=== PATIENT | male | born 1970 | race Caucasian/White ===

== ENCOUNTER → 2017-02-25 | Outpatient (CLI) | payer OTHER ==
[~2017-02-25] MED LIST: 'XANAX1 MG PO; ALBUTEROL0.09 MG/A2 INH; ALPRAZOLAM0.5 MG PO; AMANTADINE HCL PO; AMOXIL500 MG PO; ATARAX25 MG PO; ATIVAN1 MG PO; AVPAK AZITHROM250 M1 PO; B COMPLEX & B121 TAB PO; BUSPIRONE HCL5 MG PO; CLEOCIN150 MG PO; CLINDAMYCIN HC300 MG PO; CLONIDINE0.1 MG PO; FLONASE 0.05% 121 EA NAS; HALDOL1 MG PO; HYDROCODONE BIT1 T11 PO; LITHIUM CARBON300 MG PO; LOMOTIL 0.025 M1 TA1 PO; MOTRIN800 MG PO; MULTI VITAMINS1 TAB PO; NEURONTIN300 MG PO; NEURONTIN600 MG PO; NEURONTIN800 MG PO; PHENERGAN W/DM120 ML PO; PREDNICOT10 MG PO; PREDNICOT20 MG PO; ROBITUSSIN AC 110 ML PO; SIMVASTATIN20 MG PO; TESSALON PERLE200 MG PO; VISTARIL25 M1 PO; XANAX XR1 MG PO; XANAX0.5 MG PO; XANAX1 MG PO; ZITHROMAX Z PA250 MG PO; ZOFRAN ODT4 MG SL; ZYRTEC10 MG PO; Zofran4 MG PO
[2017-02-28 17:07] LABS: FECAL WBC Final report (None Seen)
== END | disposition home or self-care (01) ==
LOC: LAB 14:35 → RAD 14:35
PROVIDERS: Nurse Practitioner Family
DX: R10.9 Unspecified abdominal pain (principal); R19.7 Diarrhea, unspecified; Z98.1 Arthrodesis status

== ENCOUNTER → 2017-06-24 | Outpatient (CLI) | payer BC | END | disposition home or self-care (01) | LOC: US 09:08 | DX: K76.0 Fatty (change of) liver, not elsewhere classified (principal); R16.1 Splenomegaly, not elsewhere classified ==

== ENCOUNTER → 2017-08-15 | Outpatient (CLI) | payer BC ==
[2017-08-15 11:16] LABS: BILIRUBIN NEGATIVE (NEGATIVE); BLOOD NEGATIVE (NEGATIVE); CLARITY CLEAR (CLEAR); COLOR YELLOW (YELLOW); GLUCOSE NEGATIVE (NEGATIVE); KETONE NEGATIVE (NEGATIVE); LEUKO ESTERASE NEGATIVE (NEGATIVE); NITRITE POSITIVE (NEGATIVE); UROBILINOGEN 0.2 E.U./dl (0.2-1.0)
[2017-08-15 11:24] LABS: BASO # 0.1 10*3/uL (0.0-0.1); BASO % 0.9 % (0.0-1.0); EOS # 0.2 10*3/uL (0.0-0.4); EOS % 2.6 % (1.0-4.0); HEMOGLOBIN 17.3 g/dl (14.0-18.0); LYMPH # 2.2 10*3/uL (1.3-4.4); MEAN CELL VOLUME 87.1 fl (80.0-94.0); MEAN CORPUSCULAR HGB 30.1 pg (27.0-31.0); MEAN CORPUSCULAR HGB CONC 34.6 g/dl (33.0-37.0); MEAN PLATELET VOLUME 9.7 fl (9.6-12.3); MONO # 0.6 10*3/uL (0.1-1.0); NEUT # 4.7 10*3/uL (2.3-7.9); NEUT % 60.2 % (47.0-73.0); PLATELET COUNT AUTOMATED 248 10*3/uL (130-400); RED BLOOD COUNT 5.74 10*6/uL (4.50-5.90); RED CELL DISTRI WIDTH 13.1 % (0-14.5); WHITE BLOOD COUNT 7.8 10*3/uL (4.8-10.8)
[2017-08-15 11:46] LABS: ALBUMIN 4.1 gm/dl (3.1-4.5); BUN 12 mg/dl (7-24); CHLORIDE 106 mmol/L (98-107); CREATININE 1.13 mg/dL (0.70-1.30); POTASSIUM 3.9 mmol/L (3.5-5.1); SGOT/AST 19 IU/L (3-35); SGPT/ALT 41 U/L (12-78); SODIUM 140 mmol/L (136-145); TOTAL PROTEIN 7.4 gm/dL (6.4-8.2)
[2017-08-15 11:48] LABS: BACTERIA TRACE; EPITHELIAL CELLS 0-2; WBC 0-2 wbc/hpf (0-5)
[2017-08-15 11:51] LABS: ALKALINE PHOSPHATASE 93 U/L (45-117)
== END | disposition home or self-care (01) ==
LOC: LAB 10:49
PROVIDERS: Urology
DX: Z12.5 Encounter for screening for malignant neoplasm of prostate (principal); D40.0 Neoplasm of uncertain behavior of prostate; E78.5 Hyperlipidemia, unspecified; N39.0 Urinary tract infection, site not specified

== ENCOUNTER → 2017-11-12 | Outpatient (CLI) | payer OTHER | END | disposition home or self-care (01) | LOC: RAD 10:45 | DX: M25.561 Pain in right knee (principal) ==

== ENCOUNTER → 2019-02-07 | Outpatient (CLI) | payer OTHER ==
[~2019-02-07] MED LIST changes: +AMPHETAMINE/DEX30 MG PO; +BREO ELLIPTA 11 EACH INH; +DIAZEPAM5 MG PO; +GABAPENTIN TAB600 MG PO; +HYDROCODONE-AC1 EAC2 PO; +METFORMIN HYDR500 MG PO; +NAPROSYN500 MG PO; +OMEPRAZOLE40 MG PO; +PRAMIPEXOLE DI0.5 MG PO; +PROBIOTIC1 EAC4 PO; +SIMVASTATIN10 MG PO; +VICTOZA 3-PAK6 MG/ML SC; +VITAMIN B-125000 MC1 PO; +VITAMIN C500 M4 PO; +ZESTRIL10 MG PO
--- NOTE | ~2019-02-07 | EKG ---
[place], [place] ELECTROCARDIOGRAM REPORT NAME: ARCHIE CADET UNIT #: [id number] ROOM: DOCTOR: EPIPHANY DRAFT REPORT BIRTHDATE: [birth year] [facility] Test Date: 2019-02-07 Test Time: 10:51:49 Pat Name: ARCHIE CADET Department: Room: Gender: Shop Steward: Rianna Junior : 1970 Requested By: JOSE MANUEL BARRON Order Number: [id number] Reading MD: Aldair Hawley MD Measurements Intervals [place] Rate: 75 P: 26 NH: 147 QRS: 89 QRSD: 110 T: 32 QT: 394 QTc: 441 Interpretive Statements Sinus rhythm RSR' in V1 or V2, right VCD or RVH Electronically Signed On 02-08-2019 8:13:09 PDT by Aldair Hawley MD CM:EKGRPT:ELECTROCARDIOGRAM REPORT [id number] JOSE MANUEL BARRON EPIPHANY DRAFT REPORT JOSE MANUEL BARRON
== END | disposition home or self-care (01) ==
LOC: CARD 10:37
DX: E11.9 Type 2 diabetes mellitus without complications (principal); I10 Essential (primary) hypertension; E78.5 Hyperlipidemia, unspecified; M54.5 Low back pain; M25.561 Pain in right knee; M25.562 Pain in left knee; Z79.4 Long term (current) use of insulin

== ENCOUNTER → 2019-03-14 | Outpatient (CLI) | payer OTHER ==
[2019-03-14 10:49] LABS: ALBUMIN 4.4 gm/dl (3.1-4.5); ALKALINE PHOSPHATASE 63 U/L (45-117); BUN 18 mg/dl (7-24); CHOLESTEROL 148 mg/dL (<200); CREATININE 1.26 mg/dL (0.70-1.30); HDL CHOLESTEROL 44 mg/dl (40-60); LDL CHOLESTEROL 67 mg/dL (9-159); LIPASE 164 U/L (73-393); SGOT/AST 53 IU/L (3-35); SGPT/ALT 93 U/L (12-78); TOTAL PROTEIN 7.2 gm/dL (6.4-8.2); TRIGLYCERIDES 185 mg/dl (<150); VLDL CHOLESTEROL 37 mg/dL (6-40)
[2019-03-14 11:15] LABS: CHLORIDE 106 mmol/L (98-107); POTASSIUM 4.2 mmol/L (3.5-5.1); SODIUM 139 mmol/L (136-145)
[2019-03-14 11:37] LABS: PTH INTACT 56.5 pg/mL (18.5-88.0); VITAMIN D, 25-HYDROXY 23.2 ng/mL (30-100)
[2019-03-15 09:08] LABS: LDL CHOLESTEROL (DIRECT) 83 mg/dL (0-99)
== END | disposition home or self-care (01) ==
LOC: LAB 09:54
PROVIDERS: Internal Medicine Endocrinology, Diabetes & Metabolism
DX: E11.9 Type 2 diabetes mellitus without complications (principal); E78.5 Hyperlipidemia, unspecified; E55.9 Vitamin D deficiency, unspecified; E53.8 Deficiency of other specified B group vitamins

== ENCOUNTER → 2019-07-17 | Outpatient (CLI) | payer OTHER ==
[~2019-07-17] MED LIST changes: +DICLOFENAC SOD75 MG PO; +FENOFIBRATE MI134 MG PO; +FLUOXETINE HCL40 MG PO; +GLIMEPIRIDE4 M1 PO; +OLANZAPINE15 M2 PO; +OMEGA-31000 M1 PO; +OZEMPIC1 MG/0.75 SQ; +STEGLATRO15 MG PO; +TRAZODONE100 MG PO; +TRESIBA100 UNIT/1 SQ
--- NOTE | ~2019-07-17 | ST ---
[place], [place] EXERCISE STRESS TEST REPORT NAME: ARCHIE CADET [facility] #: [id number] UNIT #: [id number] ROOM: DOCTOR: CATY BURCIAGA MD BIRTHDATE: [birth year] DOS: 07/17/2019 DOBUTAMINE PORTION OF THE DOBUTAMINE STRESS ECHOCARDIOGRAM The patient with psychiatric issues with a syncopal episode, referred for a dobutamine stress echocardiogram. Baseline EKG shows baseline sinus rhythm with incomplete right bundle-branch pattern. The patient was given dobutamine up to 40 mcg and 0.5 of atropine. The patient has episodes of 2:1 AV block intermittently. Baseline echo showed an excellent ejection fraction with dobutamine and the atropine. Heart rate went up to 129, which actually doubled the heart rate. He started with 55 with sinus bradycardia. The patient had no chest discomfort. There is significant improvement of ejection fraction with thickening of all the segments of the left ventricle. No wall motion abnormalities. No more episodes of heart block. FINAL IMPRESSION: Abnormal EKG response with episodes of 2:1 AV block. Normal echo response with improvement of ejection fraction, no wall motion abnormalities. The patient is a diabetic, dyslipidemic with a syncopal episode with 2:1 AV block, probably needs an EP study and the consideration for a pacemaker because of the significant risk factors, may need a heart catheterization prior to that. CATY BURCIAGA MD CM:STRESS:EXERCISE STRESS TEST REPORT [id number] CATY BURCIAGA MD
--- NOTE | 2019-07-17 07:55 | NUR ---
INFORMED CONSENT OBTAINED FOR DOBUTAMINE STRESS ECHO WITH DR. BURCIAGA. RESTING EKG SINUS DOMINGO WITH A RESTING HR OF 57 AND BP OF 118/74. PT COMPLETED 10:36 OF A 3:00 DOBUTAMINE PROTOCOL WITH PEAK INFUSION OF 40 MCG/KG/MIN FOR 1:36 OF STAGE IV. IN STAGES I AND II HAD FREQUENT EPISODES OF 2:1 AV BLOCK. PT ASYMPTOMATIC. IN STAGE II STARTED PERFORMING ISOMETRIC HAND EXERCISE AND CYCLING OF LEGS IN CART. HR INCREASED 2:1 AV BLOCK SUBSIDED. END OF STAGE III HR 90 AND ATROPINE 0.5 MG IV ADMINISTERED ORDERED TO INCREASE HR. HAD A PEAK HR OF 129 WHICH IS 75% OF PREDICTED MAX WITH A PEAK BP OF 216/50. HAD NO ST CHANGES OR ANY CHEST DISCOMFORT. NEGATIVE STRESS ECHO PORTION. SEE ECHO REPORT FOR FULL DETAILS. TOLERATED ALL MEDICATIONS ADMINISTERED WELL. DR. BURCIAGA EXPLAINED TO PT ECHO PORTION IS NEGATIVE BUT ABNORMAL WITH 2:1 AV BLOCK AND SCHEDULING PATIENT FOR CARDIAC CATHETERIZATION. OFFICE CALLED AND WILL BE SCHEDULING CATH AND NOTIFYING PATIENT. LAST RECOVERY HR OF 93 WITH BP OF 90/60. IV DISCONTINUED AND DISCHARGED IN STABLE CONDITION.
== END | disposition home or self-care (01) ==
LOC: CARD 00:56
DX: I20.9 Angina pectoris, unspecified (principal); R94.31 Abnormal electrocardiogram [ECG] [EKG]; Z82.49 Family history of ischemic heart disease and other diseases of the circulatory system

== ENCOUNTER 2019-08-28 11:24 | Emergency (ER) | payer OTHER ==
[~2019-08-28] VITALS: Ht 190.5 cm; Wt 122.9 kg
== END 2019-08-28 14:12 | disposition short-term general hospital (02) ==
LOC: ED 11:24
DX: R32 Unspecified urinary incontinence (principal); R15.9 Full incontinence of feces; M54.9 Dorsalgia, unspecified; E11.9 Type 2 diabetes mellitus without complications; E78.5 Hyperlipidemia, unspecified; E66.9 Obesity, unspecified; J44.9 Chronic obstructive pulmonary disease, unspecified; I10 Essential (primary) hypertension; E78.00 Pure hypercholesterolemia, unspecified; Z68.39 Body mass index [BMI] 39.0-39.9, adult; Z79.899 Other long term (current) drug therapy; Z88.0 Allergy status to penicillin; Z88.6 Allergy status to analgesic agent

== ENCOUNTER → 2020-04-14 | Outpatient (CLI) | payer OTHER | END | disposition home or self-care (01) | LOC: US 11:01 | DX: J44.9 Chronic obstructive pulmonary disease, unspecified (principal); I65.23 Occlusion and stenosis of bilateral carotid arteries; J84.10 Pulmonary fibrosis, unspecified; G62.9 Polyneuropathy, unspecified; E66.2 Morbid (severe) obesity with alveolar hypoventilation; E16.2 Hypoglycemia, unspecified ==

== ENCOUNTER → 2020-06-02 | Outpatient (CLI) | payer OTHER ==
[~2020-06-02] MED LIST changes: +ABILIFY2 MG PO; +ADDERALL 30 MG30 MG PO; +JARDIANCE25 MG PO; +MIRAPEX1 MG PO; +PROZAC40 M1 PO; +VIT B12 PO; +VIT C PO; +VIT D3 PO
--- NOTE | 2020-06-02 11:52 | NUR ---
INFORMED SIGNED CONSENT OBTAINED FOR LEXISCAN STRESS TEST WITH DR ZIEGLER. RESTING EKG NSR HR 66. PULSE OX 97% LUNGS CLEAR. PT COMPLETED ONE MINUTE OF A LEXISCAN STRESS TEST WITH PT RECEIVING LEXISCAN 0.4MG IV OVER 10 SECONDS. NO ARRHYTHMIAS OR ST CHANGES NOTED. PT C/O SOB WITH INJECTION. LAST RECOVERY HR OF 80 BP 110/70. PT IN STABLE CONDITION, AWAITING NUCLEAR IMAGES.
== END | disposition home or self-care (01) ==
LOC: CARD 00:26
PROVIDERS: ATTEND Internal Medicine Cardiovascular Disease
DX: R94.31 Abnormal electrocardiogram [ECG] [EKG] (principal); R06.02 Shortness of breath; R07.9 Chest pain, unspecified

== ENCOUNTER → 2020-08-20 | Outpatient (CLI) | payer OTHER | END | disposition home or self-care (01) | LOC: COVID19 16:29 | PROVIDERS: ATTEND Nurse Practitioner Family | DX: Z20.828 Contact with and (suspected) exposure to other viral communicable diseases (principal); E11.9 Type 2 diabetes mellitus without complications ==

== ENCOUNTER → 2020-10-16 | Outpatient (CLI) | payer OTHER | END | disposition home or self-care (01) | LOC: COVID19 13:37 | PROVIDERS: ATTEND Nurse Practitioner Family | DX: Z20.822 Contact with and (suspected) exposure to COVID-19 (principal); E11.9 Type 2 diabetes mellitus without complications; R42 Dizziness and giddiness; J01.90 Acute sinusitis, unspecified; R05 Cough; H55.00 Unspecified nystagmus; S09.90XA Unspecified injury of head, initial encounter; X58.XXXA Exposure to other specified factors, initial encounter; Y93.89 Activity, other specified; Y92.89 Other specified places as the place of occurrence of the external cause; Y99.8 Other external cause status; Z72.0 Tobacco use ==

== ENCOUNTER 2020-11-16 19:09 | Inpatient (IN) | payer OTHER ==
[~2020-11-16] VITALS: Ht 193 cm; Wt 113.4 kg
[2020-11-16 19:44] LABS: BASO # 0.1 10*3/uL (0.0-0.1); BASO % 0.7 % (0.0-1.0); EOS # 0.2 10*3/uL (0.0-0.4); EOS % 1.7 % (1.0-4.0); HEMATOCRIT 52.9 % (42.0-52.0); MEAN CELL VOLUME 89.7 fl (80.0-94.0); MEAN CORPUSCULAR HGB CONC 33.5 g/dl (33.0-37.0); MEAN PLATELET VOLUME 9.9 fl (9.6-12.3); MONO # 0.9 10*3/uL (0.1-1.0); MONO % 9.2 % (3.0-9.0); NEUT % 58.9 % (47.0-73.0); PLATELET COUNT AUTOMATED 213 10*3/uL (130-400); RED CELL DISTRI WIDTH 12.5 % (0-14.5); WHITE BLOOD COUNT 10.2 10*3/uL (4.8-10.8)
[2020-11-16 19:58] LABS: INTERNATIONAL NORM RATIO 0.9 (2.0-3.5)
[2020-11-16 20:01] LABS: ALBUMIN 3.9 gm/dl (3.1-4.5); ALKALINE PHOSPHATASE 99 U/L (45-117); BUN 12 mg/dl (7-24); CHLORIDE 107 mmol/L (98-107); CREATININE 1.33 mg/dL (0.70-1.30); POTASSIUM 3.6 mmol/L (3.5-5.1); SGOT/AST 23 IU/L (3-35); SGPT/ALT 59 U/L (12-78); SODIUM 141 mmol/L (136-145); TOTAL PROTEIN 7.2 gm/dL (6.4-8.2)
[2020-11-16 20:05] LABS: TROPONIN I < 0.015 ng/ml (<0.045)
[2020-11-16 22:42] VITALS: BP 99/68
[2020-11-17] MEDS ORDERED: OZEMPIC1 MG/0.75 SQ (01:43)
[2020-11-17 02:50] VITALS: BP 99/56
[2020-11-17 05:04] VITALS: BP 116/68
[2020-11-17 06:10] LABS: BASO # 0.1 10*3/uL (0.0-0.1); BASO % 0.7 % (0.0-1.0); EOS # 0.2 10*3/uL (0.0-0.4); HEMATOCRIT 53.5 % (42.0-52.0); LYMPH # 2.9 10*3/uL (1.3-4.4); LYMPH % 29.3 % (27.0-41.0); MEAN CELL VOLUME 91.8 fl (80.0-94.0); MEAN CORPUSCULAR HGB 30.2 pg (27.0-31.0); MEAN CORPUSCULAR HGB CONC 32.9 g/dl (33.0-37.0); MEAN PLATELET VOLUME 10.4 fl (9.6-12.3); MONO % 10.1 % (3.0-9.0); NEUT # 5.7 10*3/uL (2.3-7.9); NEUT % 57.6 % (47.0-73.0); PLATELET COUNT AUTOMATED 211 10*3/uL (130-400); RED BLOOD COUNT 5.83 10*6/uL (4.50-5.90); RED CELL DISTRI WIDTH 12.8 % (0-14.5); WHITE BLOOD COUNT 9.8 10*3/uL (4.8-10.8)
[2020-11-17 06:19] LABS: BUN 12 mg/dl (7-24); CHLORIDE 108 mmol/L (98-107); CHOLESTEROL 143 mg/dL (<200); CREATININE 1.16 mg/dL (0.70-1.30); FREE T4 0.88 ng/dl (0.76-1.46); HDL CHOLESTEROL 47 mg/dl (40-60); LDL CHOLESTEROL 52 mg/dL (9-159); POTASSIUM 3.4 mmol/L (3.5-5.1); SODIUM 140 mmol/L (136-145); TRIGLYCERIDES 219 mg/dl (<150); VLDL CHOLESTEROL 44 mg/dL (6-40)
[2020-11-17 08:00] VITALS: BP 118/89
[2020-11-17 08:58] LABS: VITAMIN D, 25-HYDROXY 29.1 ng/mL (30-100)
[2020-11-17 09:04] LABS: BILIRUBIN Negative (Negative); BLOOD Negative (Negative); CLARITY Cloudy (Clear); COLOR Yellow (Yellow); GLUCOSE 3+ (Negative); KETONE Negative (Negative); LEUKO ESTERASE Negative (Negative); NITRITE Negative (Negative); PH 6.5 (4.5-8.0); SPECIFIC GRAVITY >= 1.030 (1.001-1.030)
[2020-11-17 10:03] LABS: BACTERIA 2+; CALCIUM OXALATE CRYSTALS 1+
== END 2020-11-17 12:41 | disposition home or self-care (01) | DRG 342 ==
LOC: ED 19:09 → EDHOLD 22:17
PROVIDERS: Emergency Medicine; Internal Medicine; ADMIT Internal Medicine; ATTEND Internal Medicine
PROC: 2W3TX1Z Immobilization of Left Foot using Splint (ICD-10-PCS; principal; 2020-11-16)
DX: S82.899A Other fracture of unspecified lower leg, initial encounter for closed fracture (principal); R15.9 Full incontinence of feces; M54.9 Dorsalgia, unspecified; R32 Unspecified urinary incontinence; W19.XXXA Unspecified fall, initial encounter; E11.65 Type 2 diabetes mellitus with hyperglycemia; E78.5 Hyperlipidemia, unspecified; X58.XXXA Exposure to other specified factors, initial encounter; G89.29 Other chronic pain; E87.6 Hypokalemia; E83.41 Hypermagnesemia; F41.9 Anxiety disorder, unspecified; K02.9 Dental caries, unspecified; Z88.8 Allergy status to other drugs, medicaments and biological substances; Z98.1 Arthrodesis status; Z89.021 Acquired absence of right finger(s); Y93.89 Activity, other specified; Z88.6 Allergy status to analgesic agent; Z88.0 Allergy status to penicillin; Z79.1 Long term (current) use of non-steroidal anti-inflammatories (NSAID); Y92.89 Other specified places as the place of occurrence of the external cause; Y99.8 Other external cause status; Z79.899 Other long term (current) drug therapy

== ENCOUNTER 2020-11-24 15:55 | Emergency (ER) | payer OTHER ==
[~2020-11-24] VITALS: Ht 193 cm; Wt 113.4 kg
== END 2020-11-24 17:02 | disposition home or self-care (01) ==
LOC: ED 15:55
DX: Z46.89 Encounter for fitting and adjustment of other specified devices (principal); Z88.0 Allergy status to penicillin; Z88.8 Allergy status to other drugs, medicaments and biological substances; Z79.899 Other long term (current) drug therapy; Z79.84 Long term (current) use of oral hypoglycemic drugs; Z98.890 Other specified postprocedural states

== ENCOUNTER → 2020-12-03 | Outpatient (CLI) | payer OTHER | END | disposition home or self-care (01) | LOC: MRI 12:39 | PROVIDERS: ATTEND Nurse Practitioner Family | DX: Z01.02 Encounter for examination of eyes and vision following failed vision screening (principal); R55 Syncope and collapse; S82.892D Other fracture of left lower leg, subsequent encounter for closed fracture with routine healing ==

== ENCOUNTER → 2020-12-04 | Outpatient (CLI) | payer OTHER | END | disposition home or self-care (01) | LOC: CARD 00:36 | PROVIDERS: ATTEND Nurse Practitioner Family | DX: Z01.02 Encounter for examination of eyes and vision following failed vision screening (principal); R55 Syncope and collapse; S82.892D Other fracture of left lower leg, subsequent encounter for closed fracture with routine healing; X58.XXXD Exposure to other specified factors, subsequent encounter ==

== ENCOUNTER 2021-05-12 04:13 | Emergency (ER) | payer OTHER ==
[~2021-05-12] VITALS: Ht 193 cm; Wt 102.1 kg
[~2021-05-12 04:13] MED LIST changes: -SEPTDS PO
[2021-05-12] MEDS ORDERED: SEPTDS PO (04:34)
== END 2021-05-12 04:51 | disposition home or self-care (01) ==
LOC: ED 04:13
DX: N49.2 Inflammatory disorders of scrotum (principal); Z88.0 Allergy status to penicillin; Z88.6 Allergy status to analgesic agent; Z88.8 Allergy status to other drugs, medicaments and biological substances; Z79.899 Other long term (current) drug therapy; Z98.890 Other specified postprocedural states; Z89.021 Acquired absence of right finger(s)

== ENCOUNTER → 2021-05-12 | Outpatient (CLI) | payer OTHER ==
[~2021-05-12] MED LIST changes: +SEPTDS PO
== END ==
LOC: WOUNDCARE 11:01
PROVIDERS: ATTEND Surgery
DX: N49.2 Inflammatory disorders of scrotum (principal); F17.200 Nicotine dependence, unspecified, uncomplicated; Z98.890 Other specified postprocedural states; Z79.84 Long term (current) use of oral hypoglycemic drugs; Z79.899 Other long term (current) drug therapy

== ENCOUNTER → 2021-12-30 | Outpatient (CLI) | payer OTHER ==
[~2021-12-30] MED LIST changes: +SEPTDS PO
== END | disposition home or self-care (01) ==
LOC: RAD 11:16
PROVIDERS: ATTEND Nurse Practitioner Family
DX: R09.81 Nasal congestion (principal); R05.9 Cough, unspecified; E11.9 Type 2 diabetes mellitus without complications; J40 Bronchitis, not specified as acute or chronic; M85.88 Other specified disorders of bone density and structure, other site

== ENCOUNTER 2023-06-04 11:16 | Emergency (ER) | payer OTHER ==
[~2023-06-04] VITALS: Wt 104.3 kg
[2023-06-04 12:57] LABS: BASO # 0.1 10*3/uL (0.0-0.1); BASO % 0.7 % (0.0-1.0); EOS # 0.4 10*3/uL (0.0-0.4); EOS % 4.3 % (1.0-4.0); HEMATOCRIT 42.5 % (42.0-52.0); LYMPH # 1.6 10*3/uL (1.3-4.4); LYMPH % 18.9 % (27.0-41.0); MEAN CELL VOLUME 89.7 fl (80.0-94.0); MEAN CORPUSCULAR HGB 30.4 pg (27.0-31.0); MEAN CORPUSCULAR HGB CONC 33.9 g/dl (33.0-37.0); MEAN PLATELET VOLUME 9.6 fl (9.6-12.3); MONO # 0.8 10*3/uL (0.1-1.0); MONO % 8.6 % (3.0-9.0); NEUT # 5.9 10*3/uL (2.3-7.9); NEUT % 67.2 % (47.0-73.0); PLATELET COUNT AUTOMATED 223 10*3/uL (130-400); RED BLOOD COUNT 4.74 10*6/uL (4.50-5.90); RED CELL DISTRI WIDTH 12.2 % (0-14.5); WHITE BLOOD COUNT 8.7 10*3/uL (4.8-10.8)
[2023-06-04 13:20] LABS: ALKALINE PHOSPHATASE 63 U/L (46-116); BUN 7 mg/dl (9-23); CHLORIDE 107 mmol/L (98-107); POTASSIUM 3.7 mmol/L (3.4-5.1); SGPT/ALT 14 U/L (10-49); TOTAL PROTEIN 6.2 gm/dL (6.0-8.0)
[2023-06-04] MEDS ORDERED: PREDNISONE50 MG PO (16:40)
== END 2023-06-04 16:48 | disposition home or self-care (01) ==
LOC: ED 11:16
PROVIDERS: Nurse Practitioner
DX: J44.9 Chronic obstructive pulmonary disease, unspecified (principal); F41.9 Anxiety disorder, unspecified; F32.A Depression, unspecified; I10 Essential (primary) hypertension; E78.00 Pure hypercholesterolemia, unspecified; E11.40 Type 2 diabetes mellitus with diabetic neuropathy, unspecified; Z87.442 Personal history of urinary calculi; Z88.0 Allergy status to penicillin; Z88.8 Allergy status to other drugs, medicaments and biological substances; Z98.890 Other specified postprocedural states; Z20.822 Contact with and (suspected) exposure to COVID-19

== ENCOUNTER 2023-10-27 08:27 | Emergency (ER) | payer OTHER ==
[~2023-10-27] VITALS: Ht 193 cm; Wt 104.3 kg
[~2023-10-27 08:27] MED LIST changes: +PREDNISONE50 MG PO
[2023-10-27] MEDS ORDERED: VIBRA-TAB100 MG PO (09:43)
== END 2023-10-27 10:03 | disposition home or self-care (01) ==
LOC: ED 08:27
DX: L02.11 Cutaneous abscess of neck (principal); F41.9 Anxiety disorder, unspecified; F32.A Depression, unspecified; E11.9 Type 2 diabetes mellitus without complications; J44.9 Chronic obstructive pulmonary disease, unspecified; I10 Essential (primary) hypertension; E78.00 Pure hypercholesterolemia, unspecified; Z88.0 Allergy status to penicillin; Z88.8 Allergy status to other drugs, medicaments and biological substances; Z98.890 Other specified postprocedural states

== ENCOUNTER → 2023-10-28 | Outpatient (CLI) | payer OTHER ==
[~2023-10-28] MED LIST changes: +VIBRA-TAB100 MG PO
== END | disposition home or self-care (01) ==
LOC: WOUNDCARE 03:52
PROVIDERS: ATTEND Nurse Practitioner Family
DX: L02.11 Cutaneous abscess of neck (principal); L03.221 Cellulitis of neck; E11.9 Type 2 diabetes mellitus without complications; J44.9 Chronic obstructive pulmonary disease, unspecified; F12.90 Cannabis use, unspecified, uncomplicated; F17.210 Nicotine dependence, cigarettes, uncomplicated

== ENCOUNTER 2024-08-18 14:13 | Emergency (ER) | payer MEDICAID ==
[~2024-08-18] VITALS: Ht 190.5 cm; Wt 99.8 kg
[2024-08-18] MEDS ORDERED: Bacitracin Zinc 14 GM TUBE T ONE (15:20)
[2024-08-18] MEDS ORDERED: Tdap Vaccine 0.5 ML SYR (Adult Vaccine) IM ONE (15:20)
== END 2024-08-18 15:34 | disposition home or self-care (01) ==
LOC: ED 14:13
DX: S61.211A Laceration without foreign body of left index finger without damage to nail, initial encounter (principal); F41.9 Anxiety disorder, unspecified; F32.A Depression, unspecified; E11.9 Type 2 diabetes mellitus without complications; J44.9 Chronic obstructive pulmonary disease, unspecified; I10 Essential (primary) hypertension; E78.00 Pure hypercholesterolemia, unspecified; Z88.0 Allergy status to penicillin; Z88.5 Allergy status to narcotic agent; Z88.8 Allergy status to other drugs, medicaments and biological substances; Z98.890 Other specified postprocedural states; W27.0XXA Contact with workbench tool, initial encounter; Y93.89 Activity, other specified; Y92.89 Other specified places as the place of occurrence of the external cause; Y99.8 Other external cause status

== ENCOUNTER 2024-08-30 10:53 | Emergency (ER) | payer MEDICAID ==
[~2024-08-30] VITALS: Ht 190.5 cm; Wt 99.8 kg
[2024-08-30] MEDS ORDERED: CEPHALEXIN 500 MG 2 CAP ED PACK PO SCH (11:20)
[2024-08-30] MEDS ORDERED: CEPHALEXIN500 M1 PO (11:21)
== END 2024-08-30 11:13 | disposition home or self-care (01) ==
LOC: ED 10:53
DX: S61.211D Laceration without foreign body of left index finger without damage to nail, subsequent encounter (principal); F41.9 Anxiety disorder, unspecified; F32.A Depression, unspecified; E11.9 Type 2 diabetes mellitus without complications; J44.9 Chronic obstructive pulmonary disease, unspecified; I10 Essential (primary) hypertension; E78.00 Pure hypercholesterolemia, unspecified; Z87.442 Personal history of urinary calculi; Z88.0 Allergy status to penicillin; Z88.5 Allergy status to narcotic agent; Z88.8 Allergy status to other drugs, medicaments and biological substances; Z98.890 Other specified postprocedural states; X58.XXXD Exposure to other specified factors, subsequent encounter

== ENCOUNTER 2024-10-27 07:55 | Emergency (ER) | payer MEDICAID ==
[~2024-10-27] VITALS: Ht 190.5 cm; Wt 99.8 kg
[~2024-10-27 07:55] MED LIST changes: +CEPHALEXIN500 M1 PO
[2024-10-27] MEDS ORDERED: Sulfamethoxazole/Trimethopri 1 TAB TAB PO ONE (08:15)
[2024-10-27] MEDS ORDERED: SEPTDS PO (08:36)
== END 2024-10-27 08:48 | disposition home or self-care (01) ==
LOC: ED 07:55
DX: L02.213 Cutaneous abscess of chest wall (principal); E11.9 Type 2 diabetes mellitus without complications; I10 Essential (primary) hypertension; E78.5 Hyperlipidemia, unspecified; F41.9 Anxiety disorder, unspecified; F32.A Depression, unspecified; J44.9 Chronic obstructive pulmonary disease, unspecified; E78.00 Pure hypercholesterolemia, unspecified; F10.90 Alcohol use, unspecified, uncomplicated; Z88.0 Allergy status to penicillin; Z88.5 Allergy status to narcotic agent; Z88.8 Allergy status to other drugs, medicaments and biological substances; Z98.890 Other specified postprocedural states

== ENCOUNTER → 2024-11-14 | Outpatient (CLI) | payer MEDICAID ==
[2024-11-14 08:48] LABS: BASO # 0.1 10*3/uL (0.0-0.1); BASO % 0.9 % (0.0-1.0); EOS # 0.3 10*3/uL (0.0-0.4); EOS % 4.2 % (1.0-4.0); HEMATOCRIT 45.8 % (42.0-52.0); MEAN CORPUSCULAR HGB 30.1 pg (27.0-31.0); MEAN CORPUSCULAR HGB CONC 33.4 g/dl (33.0-37.0); MEAN PLATELET VOLUME 9.3 fl (9.6-12.3); MONO # 0.5 10*3/uL (0.1-1.0); MONO % 8.4 % (3.0-9.0); NEUT % 46.4 % (47.0-73.0); PLATELET COUNT AUTOMATED 241 10*3/uL (130-400); RED BLOOD COUNT 5.09 10*6/uL (4.50-5.90); RETICULOCYTE % 1.25 % (0.50-2.50); WHITE BLOOD COUNT 6.4 10*3/uL (4.8-10.8)
[2024-11-14 08:53] LABS: BILIRUBIN Negative (Negative); BLOOD Negative (Negative); CLARITY Clear (Clear); COLOR Yellow (Yellow); GLUCOSE Negative (Negative); KETONE Trace (Negative); LEUKO ESTERASE Negative (Negative); NITRITE Negative (Negative); SPECIFIC GRAVITY >= 1.030 (1.001-1.030)
[2024-11-14 09:16] LABS: RBC 0-2 rbc/hpf (0-2)
[2024-11-14 09:22] LABS: ALKALINE PHOSPHATASE 74 U/L (46-116); BUN 11 mg/dl (9-23); CHLORIDE 104 mmol/L (98-107); CHOLESTEROL 185 mg/dL (<200); GAMMA GLUTAMYL TRANSPEPTIDASE 23 U/L (0-73); LDL CHOLESTEROL 96 mg/dL (9-159); POTASSIUM 3.8 mmol/L (3.4-5.1); SGPT/ALT 17 U/L (5-49); T3 UPTAKE 25.6 % (22.4-36.7); THYROXINE (T4) TOTAL 6.2 ug/dl (4.5-10.9); TOTAL PROTEIN 6.9 gm/dL (6.0-8.0); TRIGLYCERIDES 251 mg/dl (<150); URIC ACID 5.1 mg/dL (3.7-9.2)
[2024-11-14 09:39] LABS: VITAMIN D, 25-HYDROXY 23.9 ng/mL (30-100)
[2024-11-15 12:06] LABS: ANTI-DSDNA ANTIBODIES <1 IU/mL (0-9)
== END | disposition home or self-care (01) ==
LOC: LAB 08:12
PROVIDERS: ATTEND Family Medicine
DX: R06.02 Shortness of breath (principal); E55.9 Vitamin D deficiency, unspecified; E10.9 Type 1 diabetes mellitus without complications; R74.8 Abnormal levels of other serum enzymes; E78.5 Hyperlipidemia, unspecified; R53.83 Other fatigue; R79.89 Other specified abnormal findings of blood chemistry; J98.4 Other disorders of lung

== ENCOUNTER → 2024-11-28 | Outpatient (CLI) | payer MEDICAID ==
[~2024-11-28] MED LIST changes: +IOHEXOL 300 MG/ML 100 ML VIAL IV ONE
== END | disposition home or self-care (01) ==
LOC: CT 07:40
PROVIDERS: ATTEND Family Medicine
DX: J84.10 Pulmonary fibrosis, unspecified (principal); J43.9 Emphysema, unspecified; R91.1 Solitary pulmonary nodule; R22.2 Localized swelling, mass and lump, trunk; K76.0 Fatty (change of) liver, not elsewhere classified

== ENCOUNTER 2024-12-08 10:44 | Emergency (ER) | payer MEDICAID ==
[~2024-12-08] VITALS: Ht 187.9 cm; Wt 103.0 kg
[~2024-12-08 10:44] MED LIST changes: -IOHEXOL 300 MG/ML 100 ML VIAL IV ONE
[2024-12-08] MEDS ORDERED: BUPRENORPHINE-1 EAC1 SL (10:55)
[2024-12-08] MEDS ORDERED: GABAPENTIN400 MG PO (10:56)
[2024-12-08] MEDS ORDERED: VYVANSE60 MG PO (10:56)
[2024-12-08] MEDS ORDERED: LANTUS SOL100 UNIT/1 SQ (10:57)
[2024-12-08] MEDS ORDERED: ATORVASTATIN CA20 M1 PO (10:58)
[2024-12-08] MEDS ORDERED: SERTRALINE HYD100 MG PO (10:59)
[2024-12-08] MEDS ORDERED: ARIPIPRAZOLE15 MG PO (10:59)
[2024-12-08] MEDS ORDERED: ALBUTEROL SULF HFA 1 INH (11:00)
[2024-12-08] MEDS ORDERED: SPIRIVA RESPIMAT4 GM INH (11:00)
[2024-12-08] MEDS ORDERED: Acetaminophen/Oxycodone 5 MG/325 MG TABLET PO ONE (11:10)
[2024-12-08] MEDS ORDERED: MELOXICAM15 MG PO (11:36)
== END 2024-12-08 11:44 | disposition home or self-care (01) ==
LOC: ED 10:44
DX: S92.321A Displaced fracture of second metatarsal bone, right foot, initial encounter for closed fracture (principal); F41.9 Anxiety disorder, unspecified; F32.A Depression, unspecified; E11.9 Type 2 diabetes mellitus without complications; J44.9 Chronic obstructive pulmonary disease, unspecified; I10 Essential (primary) hypertension; E78.00 Pure hypercholesterolemia, unspecified; Z88.0 Allergy status to penicillin; Z88.5 Allergy status to narcotic agent; Z88.8 Allergy status to other drugs, medicaments and biological substances; Z98.890 Other specified postprocedural states; W19.XXXA Unspecified fall, initial encounter; Y93.89 Activity, other specified; Y92.89 Other specified places as the place of occurrence of the external cause; Y99.8 Other external cause status

== ENCOUNTER 2025-02-21 06:51 | Emergency (ER) | payer MEDICAID ==
[~2025-02-21] VITALS: Wt 61.7 kg
[~2025-02-21 06:51] MED LIST changes: +ALBUTEROL SULF HFA 1 INH; +ARIPIPRAZOLE15 MG PO; +ATORVASTATIN CA20 M1 PO; +BUPRENORPHINE-1 EAC1 SL; +GABAPENTIN400 MG PO; +LANTUS SOL100 UNIT/1 SQ; +MELOXICAM15 MG PO; +SERTRALINE HYD100 MG PO; +SPIRIVA RESPIMAT4 GM INH; +VYVANSE60 MG PO
[2025-02-21] MEDS ORDERED: Meloxicam 15 MG TAB PO ONE (09:30)
[2025-02-21] MEDS ORDERED: MELOXICAM15 MG PO (09:42)
== END 2025-02-21 10:22 | disposition home or self-care (01) ==
LOC: ED 06:51
DX: S93.401A Sprain of unspecified ligament of right ankle, initial encounter (principal); S93.402A Sprain of unspecified ligament of left ankle, initial encounter; R51.9 Headache, unspecified; Z88.0 Allergy status to penicillin; Z88.6 Allergy status to analgesic agent; Z88.8 Allergy status to other drugs, medicaments and biological substances; Z89.021 Acquired absence of right finger(s); Z98.890 Other specified postprocedural states; Z79.899 Other long term (current) drug therapy; Z79.84 Long term (current) use of oral hypoglycemic drugs; Z79.4 Long term (current) use of insulin; W18.39XA Other fall on same level, initial encounter; Y93.89 Activity, other specified; Y92.89 Other specified places as the place of occurrence of the external cause; Y99.8 Other external cause status